=== PATIENT | female | born 1980 | race Caucasian/White ===

== ENCOUNTER 2016-09-20 14:19 | Emergency (ER) | payer MEDICAID, OTHER ==
[~2016-09-20] VITALS: Wt 67.0 kg
[~2016-09-20 14:19] MED LIST: IBUP-1542 PO; METR500T PO
[2016-09-20] MEDS ORDERED: ONDANSETRON (ODT) 4 MG TAB ODT STA (15:17)
[2016-09-20] MEDS ORDERED: ACETAMINOPHEN/CODEINE #3 TAB PO ONE (15:30)
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
--- NOTE | 2016-09-20 17:53 | RADRPT ---
PROCEDURE: XR Lumbar Spine. CLINICAL INDICATION: back pain TECHNIQUE: AP, lateral and cone-down lateral view of the lumbar spine were obtained. COMPARISON: No prior studies are available for comparison. FINDINGS: There is normal vertebral mineralization and alignment. No fracture or subluxation is seen. The disc spaces are normal in appearance. The posterior elements are unremarkable. The soft tissues appear normal. RPTAT: AA IMPRESSION: Unremarkable lumbar spine. .Dakotah Zuleta MD, MD Date Time Electronically viewed and signed by .Dakotah Zuleta MD, on 09/20/2016 17:53 .S/
[2016-09-20] MEDS ORDERED: IBUP-1542 PO (18:02)
[2016-09-20] MEDS ORDERED: ONDA8TAB14 PO (18:02)
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
[2016-09-20 18:19] VITALS: BP 118/66; PULSE 72; RESP 17; TEMP 98.5
== END 2016-09-20 18:20 | disposition home or self-care (01) ==
LOC: FTE 14:19
DX: S33.5XXA Sprain of ligaments of lumbar spine, initial encounter (principal); R11.0 Nausea; R51 Headache; V49.59XA Passenger injured in collision with other motor vehicles in traffic accident, initial encounter
CPT/HCPCS: 70450; 71010; 72100; 72125; Z7502; Z7610

== ENCOUNTER 2017-05-16 13:45 | Emergency (ER) | payer OTHER ==
[~2017-05-16] VITALS: Ht 162.6 cm; Wt 70.5 kg
[~2017-05-16 13:45] MED LIST changes: +ONDA8TAB14 PO
[2017-05-16 14:03] VITALS: Ht 162.6 cm; Wt 70.5 kg
[2017-05-16] MEDS ORDERED: ONDANSETRON 4 MG INJ IV STA ×2 (17:00→18:29)
[2017-05-16] MEDS ORDERED: morphine 4 MG/ML VIAL IV STA (17:00)
[2017-05-16 17:48] LABS: ABNORMAL IP MESSAGE 1; BASOPHIL # 0.1 10^3/ul (0.0-0.1); BASOPHILS % 0.5 % (0.0-2.0); EOSINOPHILS # 2.1 10^3/ul (0.0-0.5); HEMATOCRIT 32.5 % (37.0-47.0); HEMOGLOBIN 10.3 g/dl (12.0-16.0); LYMPHOCYTES # 3.6 10^3/ul (0.8-2.9); LYMPHOCYTES % 33.5 % (15.0-51.0); MEAN CORPUSCULAR HEMOGLOBIN 22.9 pg (29.0-33.0); MEAN CORPUSCULAR HGB CONC 31.7 g/dl (32.0-37.0); MEAN CORPUSCULAR VOLUME 72.2 fl (82.0-101.0); MEAN PLATELET VOLUME 9.1 fl (7.4-10.4); MONOCYTE # 0.8 10^3/ul (0.3-0.9); MONOCYTES % 7.6 % (0.0-11.0); NEUTROPHILS % 38.2 % (39.0-77.0); PLATELET COUNT 321 10^3/UL (140-415); RED CELL DISTRIBUTION WIDTH 16.7 % (11.5-14.5); WHITE BLOOD COUNT 10.7 10^3/ul (4.8-10.8)
[2017-05-16 17:50] LABS: POSITIVE DIFF @See below
[2017-05-16 17:59] LABS: ADD UMIC YES; UR ASCORBIC ACID 40 mg/dL (NEGATIVE); UR BILIRUBIN (Dip) NEGATIVE (NEGATIVE); UR BLOOD (Dip) 1+ mg/dL (NEGATIVE); UR CLARITY SLIGHTLY CLOUDY (CLEAR); UR COLOR YELLOW (YELLOW); UR GLUCOSE (Dip) NEGATIVE (NEGATIVE); UR KETONES (Dip) NEGATIVE (NEGATIVE); UR LEUKOCYTE ESTERASE (Dip) NEGATIVE Leu/ul (NEGATIVE); UR MUCUS FEW /HPF (NONE SEEN); UR NITRITE (Dip) NEGATIVE (NEGATIVE); UR RBC 2 /HPF (0-5); UR SPECIFIC GRAVITY (Dip) 1.026 (1.003-1.030); UR SQUAMOUS EPITHELIAL CELL MODERATE /HPF (FEW); UR TOTAL PROTEIN (Dip) NEGATIVE (NEGATIVE); UR UROBILINOGEN (Dip) NEGATIVE (NEGATIVE)
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
[2017-05-16 18:16] LABS: ALBUMIN 3.9 g/dl (3.3-4.9); ALBUMIN/GLOBULIN RATIO 1.11; BILIRUBIN,INDIRECT 0.1 mg/dl (0-1.1); BILIRUBIN,TOTAL 0.1 mg/dl (0.2-1.3); CALCIUM 9.1 mg/dl (8.4-10.2); CREATININE 0.71 mg/dl (0.44-1.00); POTASSIUM 3.9 mmol/L (3.5-5.1); TOTAL PROTEIN 7.4 g/dl (6.1-8.1)
[2017-05-16] MEDS ORDERED: SOD CHLORIDE 0.9% 500 ML IV ONE (18:30)
[2017-05-16] MEDS ORDERED: KETOROLAC 30 MG INJ IV STA (19:32)
--- NOTE | 2017-05-16 19:48 | RADRPT ---
PROCEDURE: CT Abdomen and Pelvis without contrast. CLINICAL INDICATION: Abdominal pain TECHNIQUE: CT scan of the abdomen and pelvis without contrast was performed on a multidetector hig h-resolution CT scanner. The patient was scanned without intravenous contrast. Coronal and sagittal reformatted images were obtained from the axial source images. Images were reviewed on a high-resol [employer] PACS workstation. The total exam CTDI equals 11.93 mGy and the total exam DLP equals 652.34 mG y-cm. One or more the following dose reduction techniques were utilized: Automated exposure control, adjus tment of the mA and / or kV according to patient's size, or use of iterative reconstruction techniqu e. COMPARISON: None. FINDINGS: Mild dependent atelectasis in posterior lung bases. No pneumoperitoneum is seen. No abnormality se en in the liver, gallbladder, spleen. No definite abnormality of the stomach is seen. No abnormali ty seen in the pancreas, adrenals or kidneys. No abdominal aortic aneurysm is seen. There is no ev idence of acute appendicitis. There is the appearance of an approximate 4 mm appendicolith in the d istal appendix. No abnormality of the bladder is seen. No definite abnormality of the uterus or ad nexal regions is seen on CT. There is appearance of an approximate 2.3 cm left ovarian follicle. N o definite abnormality of the colon is seen. No dilated small bowel loops are seen. No enlarged ly mph nodes are seen in the abdomen or pelvis. No biliary dilatation is seen. No osseous abnormality is seen. IMPRESSION: No acute abnormality seen. 4 mm appendicolith and distal appendix. Please see above. RPTAT: HJES .Wayne Hensley MD, MD Date Time Electronically viewed and signed by .Wayne Hensley MD, MD on 05/16/2017 19:47 .S/
[2017-05-16] MEDS ORDERED: HYDR-906 PO (20:00)
[2017-05-16] MEDS ORDERED: NAPR-260 PO (20:01)
[2017-05-16] MEDS ORDERED: FER325 PO (20:01)
[2017-05-16] MEDS ORDERED: ONDA4TAB8 PO (20:10)
[2017-05-16 20:27] VITALS: BP 108/56; PULSE 66; RESP 12; TEMP 97.7
== END 2017-05-16 20:28 | disposition home or self-care (01) ==
LOC: FTE 13:45
DX: R10.84 Generalized abdominal pain (principal)
CPT/HCPCS: 36415; 74176; 80053; 81001; 82270; 83690; 85025; 96374; 96375; 96376; J1885; J2270; J2405; J7040; Z7502

== ENCOUNTER 2017-05-20 08:58 | Emergency (ER) | payer OTHER ==
[~2017-05-20] VITALS: Ht 162.6 cm; Wt 69.0 kg
[~2017-05-20 08:58] MED LIST changes: +FER325 PO; +HYDR-906 PO; +NAPR-260 PO; +ONDA4TAB8 PO
[2017-05-20 09:03] VITALS: Ht 162.6 cm; Wt 69.0 kg
[2017-05-20] MEDS ORDERED: morphine 4 MG/ML VIAL IV STA (09:55)
[2017-05-20] MEDS ORDERED: SOD CHLORIDE 0.9% 1,000 ML IV STA (09:55)
[2017-05-20] MEDS ORDERED: ONDANSETRON 4 MG INJ IV STA (09:55)
[2017-05-20 10:38] LABS: BASOPHIL # 0.1 10^3/ul (0.0-0.1); BASOPHILS % 0.7 % (0.0-2.0); EOSINOPHILS # 1.6 10^3/ul (0.0-0.5); EOSINOPHILS % 19.6 % (0.0-7.0); HEMATOCRIT 36.9 % (37.0-47.0); HEMOGLOBIN 11.5 g/dl (12.0-16.0); LYMPHOCYTES # 2.6 10^3/ul (0.8-2.9); LYMPHOCYTES % 30.4 % (15.0-51.0); MEAN CORPUSCULAR HEMOGLOBIN 22.6 pg (29.0-33.0); MEAN CORPUSCULAR HGB CONC 31.2 g/dl (32.0-37.0); MEAN CORPUSCULAR VOLUME 72.6 fl (82.0-101.0); MEAN PLATELET VOLUME 9.7 fl (7.4-10.4); MONOCYTE # 0.5 10^3/ul (0.3-0.9); MONOCYTES % 6.2 % (0.0-11.0); NEUTROPHILS % 42.7 % (39.0-77.0); PLATELET COUNT 336 10^3/UL (140-415); RED BLOOD COUNT 5.08 10^6/ul (4.20-5.40); RED CELL DISTRIBUTION WIDTH 17.7 % (11.5-14.5); WHITE BLOOD COUNT 8.4 10^3/ul (4.8-10.8)
[2017-05-20 10:46] LABS: ADD UMIC NO; UR ASCORBIC ACID NEGATIVE (NEGATIVE); UR BILIRUBIN (Dip) NEGATIVE (NEGATIVE); UR BLOOD (Dip) NEGATIVE (NEGATIVE); UR CLARITY CLEAR (CLEAR); UR COLOR STRAW (YELLOW); UR GLUCOSE (Dip) NEGATIVE (NEGATIVE); UR KETONES (Dip) NEGATIVE (NEGATIVE); UR LEUKOCYTE ESTERASE (Dip) NEGATIVE Leu/ul (NEGATIVE); UR NITRITE (Dip) NEGATIVE (NEGATIVE); UR TOTAL PROTEIN (Dip) NEGATIVE (NEGATIVE); UR UROBILINOGEN (Dip) NEGATIVE (NEGATIVE)
[2017-05-20 10:52] LABS: INR 0.89; PT RATIO 0.9
--- NOTE | 2017-05-20 10:54 | ERA ---
ER Documentation Chief Complaint Date/Time DATE: 05/20/17 TIME: 10:50 Chief Complaint RIGHT LOWER QUADRANT PAIN,SCHEDULE TO HAVE APPENDECTOMY ON .SEVERE PAIN HPI 36-year-old woman referred here by her new PMD Dr. Rodriguez phone #[phone] for continued abdominal pain. She was seen and evaluated 2 days ago and diagnosed with a [address] imaging although patient had no signs of acute appendicitis and when her symptoms improve she was discharged to follow -up with PMD. She states after discharge her symptoms continued abdominal pain is in the right and left lower quadrants of the abdomen today. She has had no fever, no vomiting or diarrhea, no blood per rectum. She also has right-sided flank pain. ROS All systems reviewed and are negative except as per history of present illness. Medications Home Meds Active Scripts Ibuprofen* (Ibuprofen*) 600 Mg Tablet, 600 MG PO Q8 for PAIN AND/OR INFLAMMATION , #30 TAB Prov:KENDRICK FLORES MD 05/20/17 Ondansetron Hcl* (Zofran*) 4 Mg Tablet, 4 MG PO Q6H for NAUSEA AND/OR VOMITING, #30 TAB Prov:DAVID PETERSEN PA-C 05/16/17 Ferrous Sulfate* (Ferrous Sulfate*) 325 Mg Tabec, 325 MG PO BID, #30 TAB Prov:DAVID PETERSEN PA-C 05/16/17 Naproxen* (Naprosyn*) 500 Mg Tablet, 500 MG PO BID Y for PAIN AND/OR INFLAMMATION, #30 TAB Prov:PRODAVID SAUCEDO PA-C 05/16/17 Hydrocodone/Acetaminophen ([place] 5-325 Tablet) 1 Each Tablet, 1 TAB PO Q6H Y for PAIN, #12 TAB Prov:DAVID PETERSEN PA-C 05/16/17 Ondansetron (Ondansetron Odt) 8 Mg Tab.rapdis, 8 MG PO Q6H Y for NAUSEA AND/OR VOMITING, #6 TAB Prov:CHARLIE PRESSLEY MD 09/20/16 Ibuprofen* (Motrin*) 600 Mg Tab, 600 MG PO Q6, #15 TAB Prov:CHARLIE PRESSLEY MD 09/20/16 Metronidazole* (Flagyl*) 500 Mg Tablet, 500 MG PO BID for 7 Days, TAB Prov:TYLER VARGHESE 12/25/15 Reported Medications Ibuprofen* (Ibuprofen*) 600 Mg Tablet, 600 MG PO DAILY Y for PAIN, TAB 07/11/14 Allergies Allergies: Coded Allergies: Penicillins (Verified Allergy, Mild, RASH, 09/20/16) Pork/Porcine Containing Products (Verified Allergy, Mild, RASH, 09/20/16) penicillin G (Verified Allergy, Mild, HIVES,SWALLEN FACE, 09/20/16) tetracycline (Verified Allergy, Mild, HIVES,SWALLEN FACE, 09/20/16) PMhx/Soc Chronic pain, chronic headaches, anxiety History of Surgery: Yes (C-SECTIONS ) Anesthesia Reaction: No Hx Neurological Disorder: No Hx Respiratory Disorders: No Hx Cardiac Disorders: Yes (HTN) Hx Psychiatric Problems: No Hx Miscellaneous Medical Probl: Yes (ANEMIA, "PRE DIABETES") Hx Alcohol Use: No Hx Substance Use: No Hx Tobacco Use: No Smoking Status: Never smoker FmHx Family History: No diabetes Physical Exam Vitals Vital Signs Date Time Temp Pulse Resp B/P Pulse Ox O2 Delivery O2 Flow Rate FiO2 05/20/17 13:21 61 13 107/72 100 Room Air 05/20/17 11:39 58 18 102/68 99 Room Air 05/20/17 09:03 99.2 64 18 109/63 98 Physical Exam GENERAL: Well-developed, well-nourished, well-hydrated, in no apparent distress , looks nontoxic in appearance HEENT: Moist mucous membranes, pink conjunctiva, no cervical spine tenderness or step-off deformities, no goiter, no jaundice or icterus, extraocular movements intact without pain. No submandibular induration, and no pharyngeal erythema NEURO: Alert and oriented 3, cranial nerves II through XII intact bilaterally, pupils equal round reactive to light, no focal deficits or facial asymmetry, sensation intact distally Strength 5/5 in upper and lower extremities bilaterally CARDIAC: Regular rate and rhythm, no murmurs rubs or gallops LUNGS: Clear bilaterally no wheezing crackles or stridor ABDOMEN: Mild lower quadrant tenderness to touch, no guarding or rigidity, no rebound. No psoas sign, no Rovsing's sign SKIN: Warm and dry to touch, no abrasions, contusions, or hematomas, no lacerations, no ecchymosis, no target lesions, and without ulcers EXTREMITIES: No clubbing cyanosis or edema, calves are bilaterally symmetrical, no Homans sign, no popliteal cord sign. Distal pulses equal and bilateral PSYCH: Normal affect without agitation or irritability Result Diagram: 05/20/17 0930 05/20/17 0930 Results 24 hrs Laboratory Tests Test 05/20/17 09:30 05/20/17 10:00 White Blood Count 8.410^3/ul Red Blood Count 5.0810^6/ul Hemoglobin 11.5g/dl Hematocrit 36.9% Mean Corpuscular Volume 72.6fl Mean Corpuscular Hemoglobin 22.6pg Mean Corpuscular Hemoglobin Concent 31.2g/dl Red Cell Distribution Width 17.7% Platelet Count 28856^3/UL Mean Platelet Volume 9.7fl Neutrophils % 42.7% Lymphocytes % 30.4% Monocytes % 6.2% Eosinophils % 19.6% Basophils % 0.7% Nucleated Red Blood Cells % 0.0/100WBC Neutrophils # (Manual) 3.610^3/ul Lymphocytes # 2.610^3/ul Monocytes # 0.510^3/ul Eosinophils # 1.610^3/ul Basophils # 0.110^3/ul Nucleated Red Blood Cells # 0.010^3/ul Prothrombin Time 12.0Sec Prothrombin Time Ratio 0.9 INR International Normalized Ratio 0.89 Sodium Level 139mmol/L Potassium Level 4.2mmol/L Chloride Level 106mmol/L Carbon Dioxide Level 25mmol/L Anion Gap 12 Blood Urea Nitrogen 10mg/dl Creatinine 0.61mg/dl Glucose Level 102mg/dl Calcium Level 9.5mg/dl Total Bilirubin 0.2mg/dl Direct Bilirubin 0.00mg/dl Indirect Bilirubin 0.2mg/dl Aspartate Amino Transf (AST/SGOT) 63IU/L Alanine Aminotransferase (ALT/SGPT) 78IU/L Alkaline Phosphatase 74IU/L Total Protein 8.2g/dl Albumin 4.4g/dl Globulin 3.80g/dl Albumin/Globulin Ratio 1.15 Lipase 40U/L Urine Color STRAW Urine Clarity CLEAR Urine pH 8.0 Urine Specific [place] 1.010 Urine Ketones NEGATIVEmg/dL Urine Nitrite NEGATIVEmg/dL Urine Bilirubin NEGATIVEmg/dL Urine Urobilinogen NEGATIVEmg/dL Urine Leukocyte Esterase NEGATIVELeu/ul Urine Hemoglobin NEGATIVEmg/dL Urine Glucose NEGATIVEmg/dL Urine Total Protein NEGATIVEmg/dl Current Medications Medications (Trade) Dose Ordered Sig/Josy Route PRN Reason Start Time Stop Time Status Last Admin Dose Admin Sodium Chloride (NS) 1,000 ml @ 1,000 mls/hr Q1H STAT IV 05/20/17 09:55 05/20/17 10:54 DC 05/20/17 10:21 Morphine Sulfate (morphine) 4 mg ONCE STAT IV 05/20/17 09:55 05/20/17 09:57 DC 05/20/17 10:20 Ondansetron HCl (Zofran Inj) 4 mg ONCE STAT IV 05/20/17 09:55 05/20/17 09:57 DC 05/20/17 10:20 Procedures/MDM IV line was established patient was placed on monitoring and evaluation advisor rhythm strip revealed a sinus rhythm at about 80 bpm with upright P and T waves. Patient was afebrile. I administered 1 L of normal saline intravenously, morphine 4 mg IV and Zofran 4 mg IV. Patient was afebrile. CBC and electrolytes are normal, liver function tests normal, urine analysis negative for infection. Coagulation profile normal. CT scan revealed minimal pelvic free fluid no appendicolith or appendicitis noted, suspicion was for Left ovarian cyst recommendation was for ultrasound follow-up. Nonobstetric pelvic ultrasound was performed, ovarian torsion was ruled Ovaries were normal bilaterally although there was some adnexal free fluid on the right nothing noted on the left. Otherwise unremarkable ultrasound. Abdominal examination was repeated by me, patient had a soft belly without guarding, rigidity, or tenderness. Patient was afebrile and vital signs were normal. Patient looks well and information including labs, physical exam findings, and imaging study results were provided to her PMD who sent her in, my recommendation was for close outpatient follow-up with bar manager. Differential diagnoses considered, included but not limited to acute coronary syndrome, pulmonary embolism, aortic dissection, abdominal aortic aneurysm, sepsis, stroke, meningitis, encephalitis, pneumonia, appendicitis, cholecystitis , bowel obstruction, pyelonephritis, nephrolithiasis, cystitis, as well as metabolic, hematologic, and electrolyte abnormalities. As well as abscess, cellulitis, fractures, and dislocations. Patient feels much better at this time, and vital signs are normal, symptoms have improved. I did give strict instructions to return to the ED if symptoms continue or worsen, patient will otherwise follow-up with primary care physician. Patient understood instructions and agreed to plan. Disclaimer: Inadvertent spelling and grammatical errors are likely due to EHR/ dictation software use and do not reflect on the overall quality of patient care. Also, please note that the electronic time recorded on this note does not necessarily reflect the actual time of the patient encounter. Departure Diagnosis: Primary Impression: Abdominal pain Qualified Code: R10.30 - Lower abdominal pain Additional Impression: Pelvic pain Condition: KENDRICK Lopez MD May 20, 2017 10:54
[2017-05-20 10:58] LABS: ALBUMIN 4.4 g/dl (3.3-4.9); ALBUMIN/GLOBULIN RATIO 1.15; BILIRUBIN,INDIRECT 0.2 mg/dl (0-1.1); BILIRUBIN,TOTAL 0.2 mg/dl (0.2-1.3); CALCIUM 9.5 mg/dl (8.4-10.2); CREATININE 0.61 mg/dl (0.44-1.00); POTASSIUM 4.2 mmol/L (3.5-5.1); TOTAL PROTEIN 8.2 g/dl (6.1-8.1)
--- NOTE | 2017-05-20 11:23 | RADRPT ---
PROCEDURE: CT abdomen and pelvis without contrast. CLINICAL INDICATION: Abdominal pain TECHNIQUE: Continues 2.5 mm axial images were obtained from the domes of the diaphragms to the inf erior pubic rami. No oral or intravenous contrast was administered. The calculated dose length prod uct (DLP) = 947.34 mGy-cm. Exam CTDlvol = 16.75 mGy. One or more of the following dose reduction techniques were used: Automated exposure control, adjustment of the mA and or KV according to patien t size, or use of iterative reconstruction technique. One or more of the following dose reduction t echniques were used: Automated exposure control, adjustment of the mA and or KV according to patient size, or use of iterative reconstruction technique. COMPARISON: 05/16/2017 FINDINGS: The lung bases are clear. No pleural pericardial fluid is seen. Liver, gallbladder, pancreas, spleen, adrenals, and kidneys are within normal limits on this noncont rast study. There is no evidence of renal calculi or obstructive uropathy. Aorta is normal in calibe r. There are no pathologically enlarged mesenteric lymph nodes. The stomach and small bowel loops ar e within normal limits. There is no small bowel dilatation or obstruction. No free fluid, free air, abscess is noted in the upper abdomen CT pelvis: Images through the pelvis demonstrate physiologic free fluid in the right posterior cul- de-sac. No abscess or free air seen. Bladder is normally distended grossly unremarkable. There is a 1.5 centimeter degenerated fibroid versus a myometrial cyst in the lower uterine segment. Uterus is otherwise unremarkable. A 2 cm cyst is noted in the left ovary, which is likely the source of the fr ee fluid. Consider pelvic ultrasound for further evaluation. Evaluation of colon demonstrates no div erticulosis, diverticulitis or acute colitis. There is mild constipation in the right colon. Normal appendix is visualized. There are no pathologically enlarged iliac chain lymph nodes. No destructive bony lesions are seen. IMPRESSION: 1. 2 cm left adnexal cyst with physiologic free fluid in the pelvis. This likely represents a recen tly ruptured ovarian cyst. Consider correlation with pelvic ultrasound. 2. 1.5 cm cystic area within the lower uterine segment of the uterus. This may represent degenerate d fibroid or myometrial cyst. Alternatively, this could represent myometrial defect related to previ ous . Recommend clinical correlation. 3. Normal appendix. 4. Mild right-sided constipation. 5. No abscess or free air RPTAT: HH .Fortunato Buchanan MD, Date Time Electronically viewed and signed by .Fortunato Buchanan MD, on 05/20/2017 11:09 .W/
--- NOTE | 2017-05-20 12:38 | RADRPT ---
PROCEDURE: US Pelvis. CLINICAL INDICATION: pelvic pain , ovarian cyst TECHNIQUE: Multiple sonographic images of the pelvis were obtained utilizing a transabdominal and endovaginal technique. The images were reviewed on a PACS workstation. COMPARISON: CT 05/20/2017; US PELVIS 12/25/2015 FINDINGS: The uterus is normal in size. There is a small 7 mm cystic structure within the anterior myometrium. The uterus measures 9.2 x 4.8 x 4.5 cm. The endometrial stripe is homogeneous in appearance and has the thickness of 11 mm. The ovaries are normal in size and echogenicity. Normal Doppler flow is identified in both ovaries. The right ovary measures 2.5 x 1.6 x 1.8 cm. The left ovary measures 3.2 x 1.8 x 2.3 cm. There is a trace amount of free fluid in the right adnexa. RPTAT: AA IMPRESSION: Small cystic structure within the myometrium, unchanged and benign. Normal appearance of the ovaries. Trace amount of free fluid in the right adnexa. .Dakotah Zuleta MD, MD Date Time Electronically viewed and signed by .Dakotah Zuleta MD, MD on 05/20/2017 12:38 .S/
[2017-05-20] MEDS ORDERED: IBUP-1542 PO (12:53)
[2017-05-20 13:21] VITALS: BP 107/72; PULSE 61; RESP 13
== END 2017-05-20 13:23 | disposition home or self-care (01) ==
LOC: E/R 08:58
DX: R10.2 Pelvic and perineal pain (principal); R40.2252 Coma scale, best verbal response, oriented, at arrival to emergency department; I10 Essential (primary) hypertension; R40.2142 Coma scale, eyes open, spontaneous, at arrival to emergency department; R40.2362 Coma scale, best motor response, obeys commands, at arrival to emergency department
CPT/HCPCS: 36415; 74176; 76830; 76856; 80053; 81003; 83690; 85025; 85610; 96374; 96375; J2270; J2405; J7030; Z7502; Z7610

== ENCOUNTER 2017-11-30 12:04 | Emergency (ER) | END 2017-11-30 15:47 | disposition home or self-care (01) ==